=== PATIENT | male | born 1940 | race Caucasian/White ===

== ENCOUNTER 2025-03-19 06:34 | Day surgery (SDC) | payer MEDICARE, OTHER ==
[2025-03-19] MEDS: Lactated Ringers 1,000 ML IV SCH (07:03)
[2025-03-19] MEDS ORDERED: Propofol 200 MG/20 ML SDV ONE (07:14)
[2025-03-19] MEDS ORDERED: fentaNYL 100 MCG/2 ML SDV ONE (07:15)
== END 2025-03-19 08:45 | disposition home or self-care (01) ==
LOC: JP.SDS 06:34
PROVIDERS: ATTEND Internal Medicine
DX: K52.9 Noninfective gastroenteritis and colitis, unspecified (principal); K92.2 Gastrointestinal hemorrhage, unspecified; I10 Essential (primary) hypertension; E03.9 Hypothyroidism, unspecified; Z79.899 Other long term (current) drug therapy; Z79.890 Hormone replacement therapy
CPT/HCPCS: 00811; 45331; J2704; J3010; J7120